=== PATIENT | female | born 1975 | race Caucasian/White ===

== ENCOUNTER 2017-08-29 09:30 | Emergency (ER) | payer MEDICAID ==
[~2017-08-29] VITALS: Ht 167.6 cm; Wt 95.4 kg
[~2017-08-29 09:30] MED LIST: AMOXICOT500 M1 PO; BACTRIM DS 8001 TA1 PO; ELIMITE 5%60 GM/TUB1 TP; FLEXERIL10 M1 PO; NOMEDS XX; PERCOCET 325 MG1 TA4 PO; TRAMADOL50 M1 PO; VISTARIL25 MG PO
--- OUTSIDE RECORDS SUMMARY | 2017-08-29 09:34 | External Medical Summary Rpt | CCD ---
Author Author , VIKAS Organization VIKAS Address Unknown Phone [email or web address] Purpose Continuity of Care Document - 03-10-2012 through 2016 Problems Code Diagnosis DOS Provider Status R73.03 Prediabetes 06-29-2016 E55.9 Vitamin D 04-13-2014 deficiency, unspecified E78.2 Mixed 04-13-2014 hyperlipide lawrence Z72.0 Tobacco use 04-13-2014 B02.9 Zoster without complicatio ns E66.9 Obesity, unspecified E86.0 Dehydration F32.1 Major depressive disorder, single episode, moderate F33.1 Major depressive disorder, recurrent, moderate G62.9 Polyneuropa thy, unspecified K92.2 Gastrointes tinal hemorrhage, unspecified L03.115 Cellulitis of right lower limb L81.8 Other specified disorders of pigmentatio n R11.10 Vomiting, unspecified R19.7 Diarrhea, unspecified R79.89 Other specified abnormal findings of blood chemistry S61.412A Laceration without foreign body of left hand, initial encounter T23.022A Burn of unspecified degree of single left finger (nail) except thumb, initial encounter Z00.00 Encounter for general adult medical examination without abnormal findings Z12.31 Encounter for screening mammogram for malignant neoplasm of breast
--- OUTSIDE RECORDS SUMMARY | 2017-08-29 09:34 | External Medical Summary Rpt | CCD ---
Author Author , VIKAS Organization VIKAS Address Unknown Phone [email or web address] Purpose Continuity of Care Document - 03-10-2012 [...]
--- OUTSIDE RECORDS SUMMARY | 2017-08-29 09:36 | External Medical Summary Rpt | CCD ---
Demographics Preferred Language New Zealander Marital Status Unknown Restorationism Affiliation Unknown Race Unknown Ethnic Group Unknown Author Author , VIKAS BEAN Address Unknown Phone Immunization Unable to retrieve immunization data due to connection failure with Immunization Registry. Please try again later.
--- OUTSIDE RECORDS SUMMARY | 2017-08-29 09:36 | External Medical Summary Rpt | CCD ---
Author Author , VIKAS Scott VIKAS Address Unknown Phone [email or web address] Care Team Providers Care Rehabilitation Technician Name Role Phone [facility]available [facility], [facility], Unavailable Unavailable [facility] Unavailable Unavailable PHYSICIANS, [facility] # [id number], Unavailable Unavailable [facility] # [id number] SHALOM COVARRUBIAS, Unavailable Unavailable [facility] COVARRUBIAS, FAISAL SHANKAR Unavailable Unavailable [facility] Unavailable [facility], [facility] Unavailable Unavailable HOSPITAL P, [facility], Unavailable [facility]available [facility] Unavailable Unavailable [facility], [facility] BEREN[facility] LUNA [facility], Unavailable Unavailable [facility] Unavailable Unavailable [facility], [facility]available [facility], [facility] ALESSIA CHUCHO, ALESSIA CHUCHO Unavailable Unavailable [facility], [facility] Unavailable Unavailable [facility], Unavailable [facility] Unavailable Unavailable CLAIMS ADMINISTRATOR , [facility] CLAIMS ADMINISTRATOR [facility] Unavailable Unavailable PHYSICIANS, [facility], Unavailable Unavailable [facility]available Unavailable [facility], [facility] Unavailable Unavailable INC., [facility] Unavailable Unavailable , [facility] Unavailable Unavailable [address], [facility] [place] [id number], Unavailable Unavailable [facility] [id number] [facility] Unavailable Unavailable OF [place], [facility] [place] Purpose Continuity of Care Document - 12-07-2008 through 2016 Problems Code Diagnosis DOS Provider Status [id number] CELLULITIS 07-02-2017 [facility] OF RIGHT EMERGENCY LOWER LIMB PHYSICIANS [id number] LACERATION 06-04-2017 [facility] W/O FOREIGN EMERGENCY BODY LT PHYSICIANS HAND INITIAL ENC [id number] BURN 2ND 05-04-2017 [facility] DEG SINGLE EMERGENCY LT FINGER PHYSICIANS NO THUMB INIT ENC [id number] BURN 2ND 05-04-2017 ST. [facility] MX LT [facility] FINGER NOT POLINA THUMB INIT ENC E559 VITAMIN D 12-15-2016 DEFICIENCY [facility] UNSPECIFIED HEALTHCARE EDGE E782 MIXED 12-15-2016 HYPERLIPIDE [facility] EDGE R7989 OTHER SPEC 12-15-2016 ABNORMAL [facility] FINDINGS HEALTHCARE BLOOD EDGE CHEMISTRY Z0000 ENCOUNTER 12-15-2016 GEN ADULT [facility] MED EXAM HEALTHCARE W/O EDGE ABNORMAL FIND Z720 TOBACCO USE 12-15-2016 [facility] EDGE R7303 PREDIABETES 10-16-2016 [facility] PHYSICIANS Z1151 ENCOUNTER 10-16-2016 FOR [facility] SCREENING PHYSICIANS FOR HUMAN PAPILLOMAVI HAAKN Z1231 ENCOUNTER 10-16-2016 SCREENING [facility] MAMMO MALIG PHYSICIANS NEOPLASM BREAST B029 ZOSTER 06-23-2016 WITHOUT [facility] COMPLICATIO PHYSICIANS NS Z6832 BODY MASS 06-23-2016 INDEX BMI [facility] 32.0-32.9 PHYSICIANS ADULT E860 DEHYDRATION 05-18-2016 [facility] EMERGENCY PHYSICIANS R1110 VOMITING 05-18-2016 [facility] UNSPECIFIED EMERGENCY PHYSICIANS R197 DIARRHEA 05-18-2016 [facility] UNSPECIFIED EMERGENCY PHYSICIANS R1030 LOWER 05-09-2016 [place] [facility]AL [facility] PA[facility]AGING ASS UNSPECIFIED B954 OTHER 05-08-2016 [facility] US CAUSE OF INC DZ CLASSIFIED ELSW N602VIH INFECTION 05-08-2016 [facility], PROCEDURE PLLC INITIAL ENCOUNTER B961 KLEBSIELLA 04-27-2016 [facility] CAUSE DZ INC CLASSIFIED ELSW N390 URINARY 04-27-2016 [facility] INFECTION INC SITE NOT SPECIFIED N393 STRESS 04-27-2016 [facility] INCONTINENC PHYSICIANS E FEMALE GROUP MALE N800 ENDOMETRIOS 04-27-2016 [facility] IS OF LLC UTERUS N831 CORPUS 04-27-2016 [facility], LUTEUM CYST LLC N8320 UNSPECIFIED 04-27-2016 [facility] OVARIAN PHYSICIANS CYSTS GROUP N938 OTHER SPEC 04-27-2016 [facility] ABNORMAL PHYSICIANS UTERINE & GROUP VAGINAL BLEEDING Q504 EMBRYONIC 04-27-2016 [facility] CYST OF LLC FALLOPIAN TUBE R102 PELVIC AND 04-27-2016 [facility] PERINEAL PHYSICIANS PAIN GROUP N761 SUBACUTE 04-06-2016 [facility] AND CHRONIC PHYSICIANS VAGINITIS GROUP N920 EXCESS & 04-06-2016 [facility] MENSTRUATIO INC N W/REGULAR CYCLE S32662 ENCOUNTER 04-06-2016 [facility] PREPROCEDUR INC AL LABORATORY EXAM N736 FEMALE 03-23-2016 [facility] PELVIC PHYSICIANS PERITONEAL GROUP ADHESIONS POSTINFECTI VE N852 HYPERTROPHY 03-23-2016 [facility] OF UTERUS PHYSICIANS GROUP N819 FEMALE 03-19-2016 [facility] GENITAL PHYSICIANS PROLAPSE GROUP UNSPECIFIED N830 FOLLICULAR 03-19-2016 [place] CYST OF MEDICAL OVARY IMAGING ASS N888 OTH SPEC 03-19-2016 [place] NONINFLAMMA MEDICAL TORY IMAGING ASS DISORDERS CERVIX UTERI Z13672 ENCOUNTER 03-19-2016 [facility] MANUFACTURING TECH EXAM PHYSICIANS GENERAL RTN GROUP W/ABNORMAL FIND Y99449 ENCOUNTER 03-19-2016 [facility] MANUFACTURING TECH EXAM [facility] GENERAL RTN LABORATORIE W/O S ABNORMAL FIND M545 LOW BACK 01-21-2016 PAIN [facility] PH[facility]ICIANS X44029 OTHER ACUTE 08-27-2015 [facility] NONSUPPURAT PHYSICIANS BALWINDER OTITIS MEDIA RT EAR J0190 ACUTE 08-27-2015 SINUSITIS [facility] UNSPECIFIED PHYSICIANS H5203 HYPERMETROP 08-14-2015 FAISAL JAM IA BILATERAL 7821 RASH AND 02-25-2015 OTHER [facility] NONSPECIFIC PHYSICIANS SKIN ERUPTION 462 ACUTE 12-27-2014 [facility]US PHARYNGITIS [facility] P 35258 CHEST PAIN 09-26-2014 [facility] P 50502 OTHER 09-26-2014 [place] NONSPECIFIC MEDICAL ABNORMAL IMAGING ASS FINDING OF LUNG FIELD 57211 NONSPECIFIC 09-26-2014 [facility] P IOGRAM 9135 ELB 06-18-[address] [facility] [address] INSECT MED CTR BITE NONVENOMOUS INF 7964 OTHER 05-18-2014 ST ABNORMAL [facility] CLINICAL [facility] CTR CLAIMS ADMINISTRATOR FINDING ST 7242 LUMBAGO 02-11-2014 ALESSIA CHUCHO 7243 SCIATICA 02-11-2014 ALESSIA CHUCHO 6146 PELVIC 10-02-2011 [facility] ADHESIONS, INC FEMALE V252 STERILIZATI 10-02-2011 [facility] ON ANESTH OF THE BLUE V259 UNSPECIFIED 10-02-2011 [facility] CONTRACEPTI INC VE MANAGEMENT V7283 OTHER 09-24-2011 [facility] SPECIFIED [facility] PRE-OPERATI INC VE EXAMINATION V2509 OTH GENERAL 08-27-2011 [facility] CONTR[facility]PT [place] MANAGEMENT V2540 UNSPECIFIED 08-27-2011 [facility] OF VE [place] SURVEILLANC E 650 NORMAL 08-07-2011 [facility] DELIVERY 39717 ESOPHAGEAL 08-06-2011 [place] [address] TOBACCO USE 08-06-2011 ST D/O COMP [facility] PG MEDICALCENT CHILDBIRTH/ ER PP DELIVERED 61488 ABN FETL 08-06-2011 ST HRT [facility] RATE/RHYTHM MEDICALCENT DELIV W/WO ER ANTPRTM COND V270 OUTCOME OF 08-06-2011 ST DEL[place] [facility] [address] THREATENED 08-02-2011 [facility] ANTEPARTUM 14734 OTHER 08-01-2011 ST THREATENED [facility] LABOR, MEDICALCENT ANTEPARTUM ER V289 UNSPECIFIED 08-01-2011 [place] [address] POST TERM 07-23-2011 [facility] ANTEPARTUM MED CTR COND/COMPLI CATION 65534 BN&JNT D/O 07-23-2011 ST MAT BACK [facility] PELVIS&LW MED CTR LIMBS ANTEPARTUM 66174 OT CURRENT 07-23-2011 ST MAT CONDS [facility] CLASSIFIABL MEDICALCENT E ELSW ER ANTPRTM 7245 UNSPECIFIED 07-23-2011 ST BACKACHE [facility] MED CTR V221 SUPERVISION 07-23-2011 ST OF OTHER [facility] NORMAL MED CTR V2889 OTHER 07-23-2011 ST SPECIFIED [facility] MEDICALCENT SCREENING ER V8901 SPCT PROB 07-23-2011 ST W/AMNIOTIC [facility] CAVITY & MEDICALCENT MEMBRANE ER NOT FOUND 87627 TOB USE D/O 03-17-2011 [facility] COMP PG MATERNAL /PP ME ANTEPARTM COND/COMP 67055 PREV C/S 03-17-2011 [facility] DELIV MATERNAL UNSPEC ME EPIS CARE/NOT APPLIC 61032 PREVIOUS 03-17-2011 ST C-SECT [facility] DELIVERY MEDICALCENT ANTPRTM ER COND/COMP 75819 UNS 03-17-2011 [facility] ABNORM MGMT MATERNAL MOTH ME ANTPRTM COND/COMP V239 UNSPECIFIED 03-17-2011 [facility] HIGH-RISK MATERNAL ME 6202 OTHER AND 12-06-2010 ST U[place]PECIF[place] [address] ABDOMINAL 12-06-2010 ST PAIN, [facility] [address] ABDOMINAL 12-06-2010 ST TENDERNESS [facility] [address] ABDOMINAL 12-06-2010 ST TENDERNESS [facility] LEFT LOWER MEDICALCENT QUADRANT ER 7999 OTHER 12-06-2010 [facility] UNKNOWN&UNS AMBULANCE PEC CAUSE MORBIDITY/M ORTALITY V242 ROUTINE 04-08-2009 [place] [address] PREV C/S 04-06-2009 ST DELIV DELIV [facility] W/WO MEDICALCENT MENTION ER ANTPRTM COND V2389 SUPERVISION 03-21-2009 [facility] OTHER [facility] 10672 ASYMPTOMATI 01-29-2009 ST C [facility] BACTERIURIA MEDICALCENT PG UNSPEC ER EPIS CARE 05924 CNTRL NERV 12-07-2008 [facility] SYS MATERNAL MALFORMATIO N IN FETUS MEDICINE ANTEPARTUM INC 7965 ABNORMAL 12-07-2008 ST FINDING ON [facility] SCREENING ER Medications Na ND Rx Da Fi Fi Am Da Di Ph RX Ph St me C No te ll ll ou ys ag ar # ys at rm s nt no ma ic us Or Da si cy ia de te s n re d HY 00 10 11 [address] 40 -0 -1 .0 00 TA ti OC 60 7- 0- 00 00 L ve OD 12 20 20 96 CA ON 30 17 17 45 RE -A 5 86 CE PH TA AR [address] MA NO CY PH EN #5 5- 32 5 CE 00 10 11 40 10 00 TO Ac PH 09 -0 -1 .0 00 TA ti AL 33 7- 0- 00 00 L ve EX 14 20 20 96 CA IN 70 17 17 45 RE 5 87 50 PH 0 AR MG MA CY CA PS #5 UL E GA 16 10 11 90 30 00 TO Ac BA 71 -0 -0 .0 00 TA ti PE 40 4- 3- 00 00 L ve NT 50 20 20 94 CA IN 40 17 17 94 RE 2 70 30 PH 0 AR MG MA CY CA PS #5 UL E CH 00 10 11 56 28 00 TO Ac AN 06 -0 -0 .0 00 TA ti TI 90 4- 3- 00 00 L ve X 46 20 20 93 CA 1 90 17 17 90 RE MG 3 79 PH CO AR NT MA CY MO NT #5 H YARELY X CH 00 09 10 56 28 00 TO Ac AN 06 -0 -1 .0 00 TA ti TI 90 9- 3- 00 00 L ve X 46 20 20 93 CA 1 90 17 17 90 RE MG 3 79 PH CO AR NT MA CY MO NT #5 H YARELY X GA 16 09 10 90 30 00 TO Ac BA 71 -0 -0 .0 00 TA ti PE 40 1- 6- 00 00 L ve NT 50 20 20 94 CA IN 40 17 17 94 RE 2 70 30 PH 0 AR MG MA CY CA PS #5 UL E GA 16 08 09 90 30 00 TO Ac BA 71 -0 -0 .0 00 TA ti PE 40 3- 8- 00 00 L ve NT 50 20 20 94 CA IN 40 17 17 94 RE 2 70 30 PH 0 AR MG MA CY CA PS #5 UL E OX 00 08 09 15 3 00 TO Ac YC 40 -0 -0 .0 00 TA ti OD 60 9- 8- 00 00 L ve ON 51 20 20 95 CA E- 20 17 17 84 RE AC 5 24 ET PH AM AR IN MA OP CY HE N #5 5- 32 5 GA 16 07 08 90 30 00 TO Ac BA 71 -0 -0 .0 00 TA ti PE 40 5- 4- 00 00 L ve NT 50 20 20 94 CA IN 40 17 17 93 RE 2 38 30 PH 0 AR MG MA CY CA PS #5 UL E GA 16 06 07 90 30 00 TO Ac BA 71 -0 -0 .0 00 TA ti PE 40 2- 7- 00 00 L ve NT 50 20 20 94 CA IN 40 17 17 93 RE 2 38 30 PH 0 AR MG MA CY CA PS #5 UL E GA 16 05 06 90 30 00 TO BA 71 -0 -0 .0 00 TA ti PE 40 2- 2- 00 00 L ve NT 50 20 20 94 CA IN 40 17 17 93 RE 2 38 30 PH 0 AR MG MA CY CA PS #5 UL E 69 04 05 4. 28 00 TO T 45 -2 -2 00 00 TA ti D2 20 5- 6- 0 00 L ve 15 20 20 94 CA 1. 12 17 17 86 RE 25 0 54 PH MG AR MA (5 CY 0, 00 #5 0 UN IT ) SI 16 04 05 30 30 00 TO MV 71 -2 -2 .0 00 TA ti 40 5- 6- 00 00 L ve TA 68 20 20 94 CA TI 30 17 17 86 RE N 3 55 20 PH AR MG MA CY TA BL #5 ET GA 16 04 05 90 30 00 TO BA 71 -0 -0 .0 00 TA ti PE 40 3- 5- 00 00 L ve NT 50 20 20 94 CA IN 40 17 17 05 RE 2 47 30 PH 0 AR MG MA CY CA PS #5 UL E GA 16 03 04 90 30 00 TO BA 71 -0 -0 .0 00 TA ti PE 40 4- 7- 00 00 L ve NT 50 20 20 94 CA IN 40 17 17 05 RE 2 47 30 PH 0 AR MG MA CY CA PS #5 UL E GA 16 02 03 90 30 00 TO BA 71 -0 -1 .0 00 TA ti PE 40 3- 0- 00 00 L ve NT 50 20 20 94 CA IN 40 17 17 05 RE 2 47 30 PH 0 AR MG MA CY CA PS #5 UL E CH 00 01 03 53 28 00 TO AN 06 -2 -0 .0 00 TA ti TI 90 6- 3- 00 00 L ve X 47 [address] 10 17 17 90 RE AR 3 76 TI PH NG AR MA MO CY NT H #5 YARELY X GA 16 01 02 90 30 00 TO BA 71 -0 -0 .0 00 TA ti PE 40 3- 3- 00 00 L ve NT 50 20 20 92 CA IN 40 17 17 78 RE 2 57 30 PH 0 AR MG MA CY CA PS #5 UL E NM 60 04 04 5 30 30 CV 56 GARDNER Ac EN 25 -2 -2 .0 S 92 LL ti AT 80 5- 5- 00 PH 64 ve AL 19 20 20 AR ED 40 11 11 MA WA AD [address] CY RD # C TA BL 05 ET 43 7 00 08 09 00 30 2 WA 44 CL Ac 40 -2 -1 .0 L- 79 AR ti 60 8- 0- 00 MA 23 KE ve 35 20 20 RT 6 70 09 09 DE 5 PH RE AR K MA J CY #5 91 IB 68 08 09 00 40 6 WA 70 CL Ac UP 64 -2 -1 .0 L- 34 AR ti RO 50 8- 0- 00 MA 27 KE ve FE 22 20 20 RT 4 N 09 09 09 DE 40 0 PH RE 0 AR K MG MA J CY TA BL #5 ET 91 ME 59 08 08 00 1. 90 CL [address] 76 -1 -2 00 IN 89 AR ti OX 24 7- 7- 0 IC 66 KE ve YP 53 20 20 RO 70 09 09 PH DE GE [address] MA K ER CY J ON E 15 0 MG /M L RA 00 06 07 00 60 30 WA 72 DO Ac NI 17 -1 -0 .0 L- 98 OL ti TI 24 8- 2- 00 MA 19 EY ve DI 35 20 20 RT 2 NE 74 09 09 MA 9 PH RI 15 AR HE 0 MA LE MG CY N TA #1 BL 0- ET 19 61 NI 00 05 06 00 14 7 WA 68 MY Ac TR 18 -1 -0 .0 LG 76 ER ti OF 50 9- 4- 00 RE 01 S ve UR 12 20 20 EN BE AN 20 09 09 S TH TO 1 05 A IN 54 8 MO NO -M CR 10 0 MG Procedures Procedure DOS Code Location Performer Comment RESECTION [id number] [facility] OF LEFT 6 [facility] OVARY INC INC OPEN REPAIR [id number] [facility] PELVIC 6 [facility] REGION INC INC SUBQ TISSUE & FASCIA OPEN RESECTION [id number] [facility] CERVIX 6 [facility] OPEN INC INC RESECTION [id number] [facility] BILATERAL INC INC FALLOPIAN TUBES OPEN RESECTION [id number] [facility] UTERUS 6 [facility] OPEN INC INC LOW [address] FORCEPS 1 [facility] OPERATION WITH MEDICALCE MEDICALCE EPISIOTOM NTER NTER Y OTHER [address] ST MANUALLY 1 [facility] ASSISTED DELIVERY MEDICALCE MEDICALCE NTER NTER OTH BILAT 6629 [facility] ENDO 9 [facility] DESTRUC/O INC INC CCLUSION FALLOP TUBES EPISIOTOM [address] Y 9 [facility] MEDICALCE MEDICALCE NTER NTER OTHER [address] MANUALLY 9 S[facility]RA [facility] ASSISTED DELIVERY MEDICALCE MEDICALCE NTER NTER DIAGNOSTI 751 ST C 9 [facility] AMNIOCENT ESIS MEDICALCE MEDICALCE NTER NTER Encounters Encounter Start End Date Code Location Performer Type Date [facility] [address] [facility] [address] [facility] - 6 6 [facility] - 6 6 [facility] - 4 4 [facility] - 2 2 [facility] - 1 [address] [facility] - 1 [facility] 1 1 [facility] 1 1 [facility] [place] [id number] 9 [facility] 9 [facility] 9 [facility]
--- OUTSIDE RECORDS SUMMARY | 2017-08-29 09:36 | External Medical Summary Rpt | CCD ---
Author Author , VIKAS Scott VIKAS Address Unknown Phone [email or web address] Care Team Providers Care Websphere Process Server Developer Name Role Phone [facility] Unavailable Unavailable [facility]ORATORIES, [facility], Unavailable Unavailable [facility]available Unavailable [facility] [place] [place] [facility] Unavailable Unavailable PHYSICIANS, [facility] # [id number], Unavailable Unavailable [facility] # [id number] SHALOM COVARRUBIAS, Unavailable Unavailable SHAL[facility] COVARRUBIAS, FAISAL SHANKAR Unavailable Unavailable [facility] Unavailable Unavailable INC, [facility] Unavailable [facility]available HOSPITAL P, [facility]available Unavailable [facility] Unavailable Unavailable IMAGING [facility], [facility] BEREN[facility]NA [facility], Unavailable Unavailable [facility]EREN[facility] LUNA [facility] Unavailable Unavailable [facility], [facility], Unavailable [facility]available [facility], [facility] ALESSIA CHUCHO, ALESSIA CHUCHO Unavailable Unavailable [facility], [facility] Unavailable Unavailable [facility], [facility]available Unavailable [facility] Unavailable Unavailable STREAM CONTROL OFFICER , [facility]REAM CONTROL [facility] Unavailable Unavailable PHYSICIANS, [facility], Unavailable Unavailable [facility]available Unavailable [facility], [facility] Unavailable Unavailable INC., [facility] Unavailable Unavailable , [facility] # [facility] Unavailable Unavailable [address], [facility] [place] [id number], [facility]available Unavailable [facility] [id number] [facility] Unavailable Unavailable OF [place], [facility] Purpose Continuity of Care Document - 12-07-2008 through 2016 Problems Code Diagnosis DOS Provider Status [id number] CELLULITIS 07-02-2017 [facility] OF RIGHT EMERGENCY LOWER LIMB PHYSICIANS [id number] LACERATION 06-04-2017 [facility] W/O FOREIGN EMERGENCY BODY LT PHYSICIANS HAND INITIAL ENC [id number] BURN 2ND 05-04-2017 [facility] DEG SINGLE EMERGENCY LT FINGER PHYSICIANS NO THUMB INIT ENC [id number] BURN 2ND 05-04-2017 ST. [facility] MX LT [facility] FINGER NOT POLINA THUMB INIT ENC E559 VITAMIN D 12-15-2016 DEFICIENCY [facility] UNSPECIFIED HEALTHCARE EDGE E782 MIXED 12-15-2016 HYPERLIPIDE [facility] EDGE R7989 OTHER SPEC 12-15-2016 ABNORMAL [facility] FINDINGS HEALTHCARE BLOOD EDGE CHEMISTRY Z0000 ENCOUNTER 12-15-2016 GEN ADULT [facility] MED EXAM HEALTHCARE W/O EDGE ABNORMAL FIND Z720 TOBACCO USE 12-15-2016 [facility] EDGE R7303 PREDIABETES 10-16-2016 [facility] PHYSICIANS Z1151 ENCOUNTER 10-16-2016 FOR [facility] SCREENING PHYSICIANS FOR HUMAN PAPILLOMAVI HAKAN Z1231 ENCOUNTER 10-16-2016 SCREENING [facility] MAMMO MALIG PHYSICIANS NEOPLASM BREAST B029 ZOSTER 06-23-2016 WITHOUT [facility] COMPLICATIO PHYSICIANS NS Z6832 BODY MASS 06-23-2016 INDEX BMI [facility] 32.0-32.9 PHYSICIANS ADULT E860 DEHYDRATION 05-18-2016 [facility]GENC[facility] PHYSICIANS R1110 VOMITING 05-18-2016 [facility] UNSPECIFIED EMERGENCY PHYSICIANS R197 DIARRHEA 05-18-2016 [facility] UNSPECIFIED EMERGENCY PHYSICIANS R1030 LOWER 05-09-2016 [facility] ABDOMINAL [facility]ICAL PAIN IMAGING ASS UNSPECIFIED B954 OTHER 05-08-2016 [facility] US CAUSE OF INC DZ CLASSIFIED ELSW D670HXB INFECTION 05-08-2016 [facility]ANS, PROCEDURE PLLC INITIAL ENCOUNTER B961 KLEBSIELLA 04-27-2016 [facility] CAUSE DZ INC CLASSIFIED ELSW N390 URINARY 04-27-2016 [facility] INFECTION INC SITE NOT SPECIFIED N393 STRESS 04-27-2016 [facility] INCONTINENC PHYSICIANS E FEMALE GROUP MALE N800 ENDOMETRIOS 04-27-2016 [facility] IS OF LLC UTERUS N831 CORPUS 04-27-2016 [facility], LUTEUM CYST LLC N8320 UNSPECIFIED 04-27-2016 [facility] OVARIAN PHYSICIANS CYSTS GROUP N938 OTHER SPEC 04-27-2016 [facility] ABNORMAL PHYSICIANS UTERINE & GROUP VAGINAL BLEEDING Q504 EMBRYONIC 04-27-2016 [facility], CYST OF LLC FALLOPIAN TUBE R102 PELVIC AND 04-27-2016 [facility] PERINEAL PHYSICIANS PAIN GROUP N761 SUBACUTE 04-06-2016 [facility] AND CHRONIC PHYSICIANS VAGINITIS GROUP N920 EXCESS & 04-06-2016 [facility] MENSTRUATIO INC N W/REGULAR CYCLE W40118 ENCOUNTER 04-06-2016 [facility] PREPROCEDUR INC AL LABORATORY EXAM N736 FEMALE 03-23-2016 [facility] PELVIC PHYSICIANS PERITONEAL GROUP ADHESIONS POSTINFECTI VE N852 HYPERTROPHY 03-23-2016 [facility] OF UTERUS PHYSICIANS GROUP N819 FEMALE 03-19-2016 [facility] GENITAL PHYSICIANS PROLAPSE GROUP UNSPECIFIED N830 FOLLICULAR 03-19-2016 [place] CYST OF MEDICAL OVARY IMAGING ASS N888 OTH SPEC 03-19-2016 [place] NONINFLAMMA MEDICAL TORY IMAGING ASS DISORDERS CERVIX UTERI U10600 ENCOUNTER 03-19-2016 [facility] OPEN HEARTH WORKER EXAM PHYSICIANS GENERAL RTN GROUP W/ABNORMAL FIND L39210 ENCOUNTER 03-19-2016 [facility] OPEN HEARTH WORKER EXAM [facility] GENERAL RTN LABORATORIE W/O S ABNORMAL FIND M545 LOW BACK 01-21-2016 PAIN [facility] PHYSICIANS B50046 OTHER ACUTE 08-27-2015 [facility] NONSUPPURAT PHYSICIANS BALWINDER OTITIS MEDIA RT EAR J0190 ACUTE 08-27-2015 SINUSITIS [facility] UNSPECIFIED PHYSICIANS H5203 HYPERMETROP 08-14-2015 FAISAL JAM IA BILATERAL 7821 RASH AND 02-25-2015 OTHER [facility] NONSPECIFIC PHYSICIANS SKIN ERUPTION 462 ACUTE 12-27-2014 [facility] 99094 CHEST PAIN 09-26-2014 [facility] P 33009 OTHER 09-26-2014 [place] NONSPECIFIC MEDICAL ABNORMAL IMAGING ASS FINDING OF LUNG FIELD 23629 NONSPECIFIC 09-26-2014 [facility] P IOGRAM 9135 ELB 06-18-[address] FOREARM&[address] [facility] [address] [facility] CTR BITE NONVENOMOUS INF 7964 OTHER 05-18-2014 ST ABNORMAL [facility] CLINICAL MED CTR STREAM CONTROL OFFICER FINDING ST 7242 LUMBAGO 02-11-2014 ALESSIA CHUCHO [...] E 650 NORMAL 08-07-2011 [facility] DELIVERY 40959 ESOPHAGEAL 08-06-2011 [place] [address] TOBACCO USE 08-06-2011 ST D/O COMP [facility] PG MEDICALCENT CHILDBIRTH/ ER PP DELIVERED 58384 ABN FETL 08-06-2011 ST HRT [facility] RATE/RHYTHM MEDICALCENT DELIV W/WO ER ANTPRTM COND V270 OUTCOME OF 08-06-2011 ST DELIV[place] [facility] [address] THREATENED 08-02-2011 [facility] INC. ANTEPARTUM 36299 OTHER 08-01-2011 ST THREATENED [facility] LABOR, MEDICALCENT ANTEPARTUM ER V289 UNSPECIFIED 08-01-2011 [place] [address] POST TERM 07-23-2011 [facility] ANTEPARTUM MED CTR COND/COMPLI CATION 78185 BN&JNT D/O 07-23-2011 ST MAT BACK [facility] PELVIS&LW MED CTR LIMBS ANTEPARTUM 03885 OT CURRENT 07-23-2011 ST MAT CONDS [facility] CLASSIFIABL MEDICALCENT E ELSW ER ANTPRTM 7245 UNSPECIFIED 07-23-2011 ST BACKACHE [facility] MED CTR V221 SUPERVISION 07-23-2011 ST OF OTHER [facility] NORMAL MED CTR V2889 OTHER 07-23-2011 ST SPECIFIED [facility] MEDICALCENT SCREENING ER V8901 SPCT PROB 07-23-2011 ST W/AMNIOTIC [facility] CAVITY & MEDICALCENT MEMBRANE ER NOT FOUND 30043 TOB USE D/O 03-17-2011 [facility] COMP PG MATERNAL /PP ME ANTEPARTM COND/COMP 56583 PREV C/S 03-17-2011 [facility] DELIV MATERNAL UNSPEC ME EPIS CARE/NOT APPLIC 81538 PREVIOUS 03-17-2011 ST C-SECT [facility] DELIVERY MEDICALCENT ANTPRTM ER COND/COMP 14099 UNS 03-17-2011 [facility] ABNORM MGMT MATERNAL MOTH ME ANTPRTM COND/COMP V239 UNSPECIFIED 03-17-2011 [facility] HIGH-RISK MATERNAL ME 6202 OTHER AND 12-06-2010 ST UNSPECIFIED [place] [address] ABDOMINAL 12-06-2010 ST PAIN, [facility] [address] ABDOMINAL 12-06-2010 ST TENDERNESS [facility] [place] [address] ABDOMINAL 12-06-2010 ST TENDERNESS [facility] LEFT LOWER MEDICALCENT QUADRANT ER 7999 OTHER 12-06-2010 [facility] UNKNOWN&UNS AMBULANCE PEC CAUSE MORBIDITY/M ORTALITY V242 ROUTINE 04-08-2009 [place] [address] PREV C/S 04-06-2009 ST DELIV DELIV [facility] W/WO MEDICALCENT MENTION ER ANTPRTM COND V2389 SUPERVISION 03-21-2009 [facility] 15827 ASYMPTOMATI 01-29-2009 ST C [facility] BACTERIURIA MEDICALCENT PG UNSPEC ER EPIS CARE 70797 CNTRL NERV 12-07-2008 [facility] SYS MATERNAL MALFORMATIO [...] -A 5 86 CE PH TA AR PA MA NO CY PH EN #5 5- [...] MA CY CA PS #5 UL E WA 60 04 04 5 30 30 CV [...] Procedure DOS Code Location Performer Comment RESECTION [id number] [facility] OF LEFT 6 [facility] OVARY INC INC OPEN REPAIR [id number] [facility] PELVIC 6 [facility] REGION INC INC SUBQ TISSUE & FASCIA OPEN RESECTION [id number] [facility] CERVIX 6 [facility] OPEN INC INC RESECTION [id number] [facility] 6 [facility] BILATERAL INC INC FALLOPIAN TUBES OPEN RESECTION [id number] [facility] UTERUS 6 MEM HOS[facility] MEM [...] Date Code Location Performer Type Date [facility]OSPITAL [facility] - 7 7 [facility] [address] [facility] - 6 6 [facility] - [facility] [address] [facility] - 6 6 [facility] - 4 4 [facility] - 2 2 [facility] - 1 [address] [facility] - 1 [facility] 1 1 [facility] - 1 [facility] - 1 1 [facility] - 1 1 [facility] [place] [id number] 9 [facility] 9 [facility] 9 [facility]
--- OUTSIDE RECORDS SUMMARY | 2017-08-29 09:36 | External Medical Summary Rpt | CCD ---
Demographics Preferred Language Burmese Marital Status Unknown Hinduism Affiliation Unknown Race Unknown Ethnic Group Unknown Author Author , VIKAS BEAN Address Unknown Phone Immunization Unable to retrieve immunization data due to connection failure with Immunization Registry. Please try again later.
--- OUTSIDE RECORDS SUMMARY | 2017-08-29 09:37 | External Medical Summary Rpt ---
Author Author GAELKEKE Terry, [employer] Address Unknown Phone Unavailable Results Vit D 25-OH Observa Value Referen Units Interpr Notes Date tion ce etation Range Vitamin 13.3 30.0 - ng/mL Low INTERPR Dec 15 D-25 120.0 ETIVE 2017 [place] INFORMA 7:07 PM TION: Vitamin D, 25-Hydr oxy\.br \\.br\< 20 ng/mL Deficie ncy\.br \20 - 29 ng/mL Insuffi ciency\ .br\30 - 80 ng/mL Optimum Level\. br\>120 ng/mL Possibl e Toxicit y\.br\\ .br\NOT E: For infants and childre n up to 17 years of age, the optimum level is >=20 ng/mL. This assay accurat uyen quantif ies the sum of vitamin D3, 25-Hydr oxy and vitamin D2, 25-Hydr oxy. Lipid Scr Observa Value Referen Units Interpr Notes Date tion ce etation Range Cholest 193 <=200 mg/dL No < 200 Dec 15 esa informa 2017 [Percen tion in 5:29 PM tile] source Desirab data le\.br\ 200 - 239 Borderl ine High\.b r\>= 240 High TRIGLYC 67 <=150 mg/dL No < 150 Dec 15 ERIDES. informa 2017 TOTAL tion in Normal\ 5:29 PM source .br\150 data - 199 Borderl ine High\.b r\200 - 499 High\.b r\ >= 500 Very High CHOLEST 65 >=40 mg/dL No > 60 Dec 15 EROLS.I informa 2016 N HDL tion in Optimal 5:29 PM source \.br\40 data - 60 Accepta ble\.br \ < 40 Low LDL 115 <=100 mg/dL High < 100 Dec 15 Calcula 2017 ariella 5:29 PM Optimal \.br\10 0 - 129 Near or above optimal \.br\13 0 - 159 Borderl ine High\.b r\160 - 189 High\.b r\ >= 190 Very High TSH Observa Value Referen Units Interpr Notes Date tion ce etation Range Thyrotr 3.020 0.270 - mcIU/mL No No Nov 21 opin 4.200 informa informa 2017 [Units/ tion in tion in 5:29 PM volume] source source in data data Serum or Plasma Auto Diff Observa Value Referen Units Interpr Notes Date tion ce etation Range Neutrop 62.2 No % No No Dec 15 hils informa informa informa 2017 [#/volu tion in tion in tion in 5:07 PM me] in source source source Blood data data data by Automat ed count Lymphoc 26.3 No % No No Dec 15 ytes informa informa informa 2017 [#/volu tion in tion in tion in 5:07 PM me] in source source source Blood data data data by Automat ed count Monocyt 7.2 No % No No Dec 15 es informa informa informa 2016 [#/volu tion in tion in tion in 5:07 PM me] in source source source Blood data data data by Automat ed count Eos 3.9 No % No No Dec 15 Percent informa informa informa 2017 tion in tion in tion in 5:07 PM source source source data data data Baso 0.4 No % No No Dec 15 Percent informa informa informa 2017 tion in tion in tion in 5:07 PM source source source data data data Neut# 5.3 1.8 - x10(3)/ No No Dec 15 7.7 mcL informa informa 2017 tion in tion in 5:07 PM source source data data Lymph# 2.3 0.6 - x10(3)/ No No Nov 21 4.8 mcL informa informa 2017 tion in tion in 5:07 PM source source data data [place]# 0.6 0.0 - x10(3)/ No No Nov 21 1.3 mcL informa informa 2017 tion in tion in 5:07 PM source source data data Eos# 0.3 0.0 - x10(3)/ No No Dec 15 0.5 mcL informa informa 2017 tion in tion in 5:07 PM source source data data Baso# 0.0 0.0 - x10(3)/ No No Dec 15 0.2 mcL informa informa 2017 tion in tion in 5:07 PM source source data data CBC Observa Value Referen Units Interpr Notes Date tion ce etation Range LEUKOCY 8.6 4.0 - x10(3)/ No No Dec 15 PAOLA 11.0 mcL informa informa 2017 tion in tion in 5:07 PM source source data data Erythro 4.78 3.80 - x10(6)/ No No Dec 15 cytes 5.10 mcL informa informa 2016 [#/volu tion in tion in 5:07 PM me] in source source Blood data data by Automat ed count Hemoglo 13.7 12.0 - gm/dL No No Dec 15 bin 15.6 informa informa 2016 [Mass/v tion in tion in 5:07 PM olume] source source in data data Blood Hematoc 41.4 35.7 - % No No Dec 15 rit 45.9 informa informa 2016 [Volume tion in tion in 5:07 PM source source Fractio data data n] of Blood by Automat ed count Erythro 86.5 82.5 - fL No No Dec 15 cyte 99.8 informa informa 2016 mean tion in tion in 5:07 PM corpusc source source ular data data volume [Entiti c volume] by Automat ed count Erythro 28.7 27.0 - pg No No Dec 15 cyte 34.3 informa informa 2016 mean tion in tion in 5:07 PM corpusc source source ular data data hemoglo bin [Entiti c mass] by Automat ed count Erythro 33.2 32.1 - gm/dL No No Dec 15 cyte 35.3 informa informa 2017 mean tion in tion in 5:07 PM corpusc source source ular data data hemoglo bin concent ration [Mass/v olume] by Automat ed count Erythro 13.5 11.5 - % No No Dec 15 cyte 15.0 informa informa 2017 distrib tion in tion in 5:07 PM ution source source width data data [Ratio] by Automat ed count Platele 382 144 - x10(3)/ No No Dec 15 ts 423 mcL informa informa 2017 [#/volu tion in tion in 5:07 PM me] in source source Blood data data by Automat ed count MPV 9.4 6.8 - fL No No Dec 15 10.8 informa informa 2016 tion in tion in 5:07 PM source source data data UA Observa Value Referen Units Interpr Notes Date tion ce etation Range UA Light No No No No May 18 Color Yellow informa informa informa informa 2016 tion in tion in tion in tion in 9:48 AM source source source source data data data data UA Clear Clear No No No May 18 Appear informa informa informa 2016 tion in tion in tion in 9:48 AM source source source data data data UA Negativ Negativ No No No May 18 Glucose e e informa informa informa 2016 tion in tion in tion in 9:48 AM source source source data data data UA Negativ Negativ No No No May 18 Ketones e e informa informa informa 2016 tion in tion in tion in 9:48 AM source source source data data data UA Small Negativ No Abnorma No May 18 Blood e informa l informa 2016 tion in tion in 9:48 AM source source data data UA pH 7.0 4.8 - No No Referen May 18 8.0 informa informa ce 2016 tion in tion in range 9:48 AM source source valid data data for random specime ns only. UA Negativ Negativ No No No May 18 Protein e e informa informa informa 2016 tion in tion in tion in 9:48 AM source source source data data data UA Normal <=1 No No No May 18 Urobili mg/dl informa informa informa 2016 nogen tion in tion in tion in 9:48 AM source source source data data data UA Negativ Negativ No No No May 18 Nitrite e e informa informa informa 2016 tion in tion in tion in 9:48 AM source source source data data data UA Leuk Trace Negativ No Abnorma No May 18 Est e informa l informa 2016 tion in tion in 9:48 AM source source data data UA Spec 1.008 1.001 - No No Referen May 18 Grav 1.035 informa informa ce 2016 tion in tion in range 9:48 AM source source valid data data for random specime ns only. UA WBC 7 0 - 4 /HPF High No May 18 informa 2016 tion in 9:48 AM source data UA RBC 1 0 - 3 /HPF No No May 18 informa informa 2016 tion in tion in 9:48 AM source source data data UA 2+ No No No No May 18 Squam informa informa informa informa 2016 Epi tion in tion in tion in tion in 9:48 AM source source source source data data data data UA Trace No No No No May 18 Mucous informa informa informa informa 2016 tion in tion in tion in tion in 9:48 AM source source source source data data data data UA Trace No No Abnorma No May 18 Bacteri informa informa l informa 2016 a tion in tion in tion in 9:48 AM source source source data data data BMP Observa Value Referen Units Interpr Notes Date tion ce etation Range Sodium 138 136 - mmol/L No No May 18 145 informa informa 2016 tion in tion in 9:48 AM source source data data Potassi 3.3 3.5 - mmol/L Low No May 18 um 5.0 informa 2015 [Moles/ tion in 9:48 AM volume] source in data Serum or Plasma Chlorid 98 98 - mmol/L No No May 18 e 107 informa informa 2016 tion in tion in 9:48 AM source source data data Carbon 26 22 - 29 mmol/L No May 18 dioxide informa informa 2016 , total tion in tion in 9:48 AM source source [Moles/ data data volume] in Serum or Plasma Anion 14 7 - 16 mmol/L No No May 18 Gap informa informa 2016 tion in tion in 9:48 AM source source data data CALCIUM 8.6 8.6 - mg/dL No No May 18 .TOTAL 10.2 informa informa 2016 tion in tion in 9:48 AM source source data data Glucose 104 74 - mg/dL High No May 18 Lvl 100 informa 2016 tion in 9:48 AM source data BUN 9 6 - 20 mg/dL No No May 18 informa informa 2016 tion in tion in 9:48 AM source source data data Creatin 2.00 0.51 - mg/dL High No May 18 ine 1.30 informa 2016 tion in 9:48 AM source data GFR Afr 34 No No No No May 18 Am informa informa informa informa 2016 tion in tion in tion in tion in 9:48 AM source source source source data data data data GFR Non 28 No No No No May 18 Afr Am informa informa informa informa 2016 tion in tion in tion in tion in 9:48 AM source source source source data data data data Auto Diff Observa Value Referen Units Interpr Notes Date tion ce etation Range Neutrop 69.3 No % No No May 18 hils informa informa informa 2016 [#/volu tion in tion in tion in 9:33 AM me] in source source source Blood data data data by Automat ed count Lymphoc 17.3 No % No May 18 ytes informa informa informa 2016 [#/volu tion in tion in tion in 9:33 AM me] in source source source Blood data data data by Automat ed count Monocyt 7.3 No % No No May 18 es informa informa informa 2016 [#/volu tion in tion in tion in 9:33 AM me] in source source source Blood data data data by Automat ed count Eos 5.0 No % No May 18 Percent informa informa informa 2016 tion in tion in tion in 9:33 AM source source source data data data Baso 1.1 No % No May 18 Percent informa informa informa 2016 tion in tion in tion in 9:33 AM source source source data data data Neut# 7.6 1.8 - x10(3)/ No No May 18 7.7 mcL informa informa 2016 tion in tion in 9:33 AM source source data data Lymph# 1.9 0.6 - x10(3)/ No No May 18 4.8 mcL informa informa 2016 tion in tion in 9:33 AM source source data data [place]# 0.8 0.0 - x10(3)/ No May 18 1.3 mcL informa informa 2016 tion in tion in 9:33 AM source source data data Eos# 0.5 0.0 - x10(3)/ No No May 18 0.5 [facility] informa informa 2016 tion in tion in 9:33 AM source source data data Baso# 0.1 0.0 - x10(3)/ No No May 18 0.2 [facility] informa informa 2016 tion in tion in 9:33 AM source source data data CBC Observa Value Referen Units Interpr Notes Date tion ce etation Range LEUKOCY 10.9 4.0 - x10(3)/ No No May 18 PAOLA 11.0 [facility] informa informa 2016 tion in tion in 9:33 AM source source data data Erythro 4.35 3.80 - x10(6)/ No May 18 cytes 5.10 [facility] informa informa 2016 [#/volu tion in tion in 9:33 AM me] in source source Blood data data by Automat ed count Hemoglo 12.1 12.0 - gm/dL No May 18 bin 15.6 informa informa 2016 [Mass/v tion in tion in 9:33 AM olume] source source in data data Blood Hematoc 36.8 35.7 - % No May 18 rit 45.9 informa informa 2016 [Volume tion in tion in 9:33 AM source source Fractio data data n] of Blood by Automat ed count Erythro 84.5 82.5 - fL No No May 18 cyte 99.8 informa informa 2016 mean tion in tion in 9:33 AM corpusc source source ular data data volume [Entiti c volume] by Automat ed count Erythro 27.7 27.0 - pg No No May 18 cyte 34.3 informa informa 2016 mean tion in tion in 9:33 AM corpusc source source ular data data hemoglo bin [Entiti c mass] by Automat ed count Erythro 32.8 32.1 - gm/dL No No May 18 cyte 35.3 informa informa 2016 mean tion in tion in 9:33 AM corpusc source source ular data data hemoglo bin concent ration [Mass/v olume] by Automat ed count Erythro 12.7 11.5 - % No No May 18 cyte 15.0 informa informa 2016 distrib tion in tion in 9:33 AM ution source source width data data [Ratio] by Automat ed count Platele 440 144 - x10(3)/ High No May 18 ts 423 mcL informa 2016 [#/volu tion in 9:33 AM me] in source Blood data by Automat ed count MPV 9.3 6.8 - fL No No May 18 10.8 informa informa 2016 tion in tion in 9:33 AM source source data data Free T3 Observa Value Referen Units Interpr Notes Date tion ce etation Range T3 Free 2.73 2.00 - pg/mL No No May 18 4.40 informa informa 2013 tion in tion in 4:57 PM source source data data Free T4 Observa Value Referen Units Interpr Notes Date tion ce etation Range Thyroxi 0.95 0.93 - ng/dL No No May 18 ne (T4) 1.70 informa informa 2013 free tion in tion in 4:57 PM [Mass/v source source olume] data data in Serum or Plasma TSH Observa Value Referen Units Interpr Notes Date tion ce etation Range Thyrotr 3.490 0.270 - mcIU/mL No No May 18 opin 4.200 informa informa 2013 [Units/ tion in tion in 4:52 PM volume] source source in data data Serum or Plasma Free T3 Observa Value Referen Units Interpr Notes Date tion ce etation Range T3 Free 2.63 2.00 - pg/mL No No Apr 06 4.40 informa informa 2013 tion in tion in 8:06 PM source source data data Free T4 Observa Value Referen Units Interpr Notes Date tion ce etation Range Thyroxi 1.06 0.93 - ng/dL No No Apr 06 ne (T4) 1.70 informa informa 2013 free tion in tion in 8:06 PM [Mass/v source source olume] data data in Serum or Plasma Vit D 25-OH Observa Value Referen Units Interpr Notes Date tion ce etation Range Vitamin 14.5 30.0 - ng/mL Low INTERPR Apr 06 D-25 120.0 ETIVE 2014 [place] INFORMA 9:10 AM TION: Vitamin D, 25-Hydr oxy\.br \\.br\< 20 ng/mL Deficie ncy\.br \20 - 29 ng/mL Insuffi ciency\ .br\30 - 80 ng/mL Optimum Level\. br\>120 ng/mL Possibl e Toxicit y\.br\\ .br\NOT E: For infants and childre n up to 17 years of age, the optimum level is >=20 ng/mL. This assay accurat uyen quantif ies the sum of vitamin D3, 25-Hydr oxy and vitamin D2, 25-Hydr oxy. Glyco Observa Value Referen Units Interpr Notes Date tion ce etation Range Hemoglo 6.1 <=7.0 % No Initial Apr 06 bin informa 2013 A1c/Hem tion in Diagnos 8:49 AM [place] source tic .total data Criteri in a\.br\< Blood 5.7 % Normal\ .br\5.7 - 6.4 % At risk for diabete s mellitu s\.br\> = 6.5 % Consist ent with diabete s mellitu s\.br\\ .br\Aida betes monitor ing\.br \Target Value (ADA recomme nded): < 7 % Diff Observa Value Referen Units Interpr Notes ti ce etation Range Neutrop 2 0 - 10 % No No Apr 05 hils.ba informa informa 2013 nd tion in tion in 7:35 PM form/10 source source 0 data data leukocy paola in Blood by Manual count Aniso Slight No No No No Apr 05 informa informa informa informa 2013 tion in tion in tion in tion in 7:35 PM source source source source data data data data Poik Slight No No No No Apr 05 informa informa informa informa 2013 tion in tion in tion in tion in 7:35 PM source source source source data data data data Crenate Occasio No No No No Apr 05 d Cell nal informa informa informa informa 2013 tion in tion in tion in tion in 7:35 PM source source source source data data data data CBC Observa Value Referen Units Interpr Notes Date ti ce etation Range LEUKOCY 8.7 4.0 - x10(3)/ No No Apr 05 PAOLA 11.0 mcL informa informa 2014 tion in tion in 7:35 PM source source data data Erythro 4.99 3.80 - x10(6)/ No No Apr 05 cytes 5.10 mcL informa informa 2014 [#/volu tion in tion in 7:35 PM me] in source source Blood data data by Automat ed count Hemoglo 14.5 12.0 - gm/dL No Apr 05 bin 15.6 informa informa 2014 [Mass/v tion in tion in 7:35 PM olume] source source in data data Blood Hematoc 42.9 35.7 - % No No Apr 05 rit 45.9 informa informa 2014 [Volume tion in tion in 7:35 PM source source Fractio data data n] of Blood by Automat ed count Erythro 85.8 82.5 - fL No No Apr 05 cyte 99.8 informa informa 2014 mean tion in tion in 7:35 PM corpusc source source ular data data volume [Entiti c volume] by Automat ed count Erythro 29.0 27.0 - pg No No Apr 05 cyte 34.3 informa informa 2014 mean tion in tion in 7:35 PM corpusc source source ular data data hemoglo bin [Entiti c mass] by Automat ed count Erythro 33.8 32.1 - gm/dL No No Apr 05 cyte 35.3 informa informa 2014 mean tion in tion in 7:35 PM corpusc source source ular data data hemoglo bin concent ration [Mass/v olume] by Automat ed count Erythro 13.8 11.5 - % No No Apr 05 cyte 15.0 informa informa 2014 distrib tion in tion in 7:35 PM ution source source width data data [Ratio] by Automat ed count Platele 299 144 - x10(3)/ No No Apr 05 ts 423 mcL informa informa 2014 [#/volu tion in tion in 7:35 PM me] in source source Blood data data by Automat ed count MPV 10.7 6.8 - fL No No Apr 05 10.8 informa informa 2014 tion in tion in 7:35 PM source source data data Auto Diff Observa Value Referen Units Interpr Notes Date tion ce etation Range Neutrop 62.6 No % No No Mar 10 hils informa informa informa 2013 [#/volu tion in tion in tion in 7:35 PM me] in source source source Blood data data data by Automat ed count Lymphoc 27.6 No % No No Mar 10 ytes informa informa informa 2013 [#/volu tion in tion in tion in 7:35 PM me] in source source source Blood data data data by Automat ed count Monocyt 5.5 No % No No Apr 05 es informa informa informa 2013 [#/volu tion in tion in tion in 7:35 PM me] in source source source Blood data data data by Automat ed count Eos 3.8 No % No No Mar 10 Percent informa informa informa 2014 tion in tion in tion in 7:35 PM source source source data data data Baso 0.5 No % No No Mar 10 Percent informa informa informa 2014 tion in tion in tion in 7:35 PM source source source data data data Neut# 5.4 1.8 - x10(3)/ No No Mar 10 7.7 mcL informa informa 2014 tion in tion in 7:35 PM source source data data Lymph# 2.4 0.6 - x10(3)/ No No Mar 10 4.8 mcL informa informa 2014 tion in tion in 7:35 PM source source data data [place]# 0.5 0.0 - x10(3)/ No No Mar 10 1.3 mcL informa informa 2014 tion in tion in 7:35 PM source source data data Eos# 0.3 0.0 - x10(3)/ No No Mar 10 0.5 mcL informa informa 2014 tion in tion in 7:35 PM source source data data Baso# 0.0 0.0 - x10(3)/ No No Mar 10 0.2 mcL informa informa 2014 tion in tion in 7:35 PM source source data data Lipid Scr Observa Value Referen Units Interpr Notes Date tion ce etation Range Cholest 212 <=200 mg/dL High < 200 Apr 05 esa 2014 [Percen 6:24 PM tile] Desirab le\.br\ 200 - 239 Borderl ine High\.b r\>= 240 High TRIGLYC 121 <=150 mg/dL No < 150 Apr 05 ERIDES. informa 2013 TOTAL tion in Normal\ 6:24 PM source .br\150 data - 199 Borderl ine High\.b r\200 - 499 High\.b r\ >= 500 Very High CHOLEST 52 >=40 mg/dL No > 60 Apr 05 EROLS.I informa 2013 N HDL tion in Optimal 6:23 PM source \.br\40 data - 60 Accepta ble\.br \ < 40 Low LDL 136 <=100 mg/dL High < 100 Apr 05 Calcula 2013 ariella 6:24 PM Optimal \.br\10 0 - 129 Near or above optimal \.br\13 0 - 159 Borderl ine High\.b r\160 - 189 High\.b r\ >= 190 Very High TSH Observa Value Referen Units Interpr Notes Date tion ce etation Range Thyrotr 6.900 0.270 - mcIU/mL High No Apr 05 opin 4.200 informa 2013 [Units/ tion in 6:24 PM volume] source in data Serum or Plasma XR FOOT LEFT AP LATERAL AND OBLIQUE Observa Value Referen Units Interpr Notes Date tion ce etation Range TEXT THREE No No No No Mar 09 DIAGNOS VIEW informa informa informa informa 2012 IS LEFT tion in tion in tion in tion in 10:02 BATTERY FOOT - source source source source PM data data data data 013:\.b r\\.br\ HISTORY : Nontrau matic lateral pain.\. br\\.br \COMPAR MALLORY: Compari son with 03/10/20 12 exam.\. br\\.br \No focal displac ed or healing fractur e identif ied. No signifi cant\.b r\degen erative change or soft\.b r\tissu e injury. \.br\\. br\IMPR ESSION: Stable left foot exam. No evidenc e of fractur e. XR FOOT LEFT AP LATERAL AND OBLIQUE Observa Value Referen Units Interpr Notes Date tion ce etation Range TEXT Three-v No No No No Mar 10 DIAGNOS iew informa informa informa informa 2011 IS left tion in tion in tion in tion in 7:50 PM BATTERY foot source source source source [place] 14, data data data data 2011 07:51:0 2 PMINDIC ATION: Trauma, pain in fourth toe.The re is a posteri or calcane al spur. No fractur e or acute bony abnorma lityis identif ied.IMP RESSION : Negativ e exam.
--- OUTSIDE RECORDS SUMMARY | 2017-08-29 09:37 | External Medical Summary Rpt ---
Author Author GAELKEKE Terry, [employer] Address Unknown Phone Unavailable [...] in 5:07 PM source source data data [place]# 0.6 0.0 - x10(3)/ No No Nov [...] in 9:33 AM source source data data [place]# 0.8 0.0 - x10(3)/ No May 18 1.3 mcL informa informa 2016 tion in tion in 9:33 AM source source data data Eos# 0.5 0.0 - x10(3)/ No No May 18 0.5 [facility] informa informa 2016 tion in tion in 9:33 AM source source data data Baso# 0.1 0.0 - x10(3)/ No No May 18 0.2 [facility] informa informa 2016 tion in tion in 9:33 AM source source data data CBC Observa Value Referen Units Interpr Notes Date tion ce etation Range LEUKOCY 10.9 4.0 - x10(3)/ No No May 18 PAOLA 11.0 [facility] informa informa 2016 tion in tion in 9:33 AM source source data data Erythro 4.35 3.80 - x10(6)/ No May 18 cytes 5.10 [facility] informa informa 2016 [#/volu tion in [...] in 7:35 PM source source data data [place]# 0.5 0.0 - x10(3)/ No No Mar [...]
--- NOTE | 2017-08-29 09:54 | [facility]gent Treatment Center Report ---
History of Present Issue Date/Time Seen by Provider 08/29/17 0923 Visit Reason Pt arrived:Walked Presenting Problem:PT C/O OF SORE THROAT AND FEVERS SINCE WEDNESDAY Location if Accident: Onset of symptoms date/time:/ or onset unknown for:MEDICAL HX UNKNOWN Have you (or family members/close friends) recently traveled outside the [place]? N If Yes, where/when: Have you had exposure to infectious disease within the past month? TB? Other? Specify: Patient state that has been having sore throat and fever on and off since Wed, State that she has taken Motrin and Tylenol to help control the fevers State that her daughter has been sick with the same and she was worried that they may have strep throat or flu ALLERGIES Coded Allergies: No Known Allergies (04/27/16) Home Medications Active Scripts OXYCODONE HCL/ACETAMINOPHEN (Percocet 7.5-325 MG Tablet) 1 TAB PO Q6HP PRN MODERATE TO SEVERE PAIN #30 TAB Prov: 05/11/16 SULFAMETHOXAZOLE W/TRIMETHOPRI (Bactrim Ds Tab) 1 TAB PO BID #20 TAB Prov: 05/11/16 History Medical History General CAD? No Angina: No AR: No Hypertension? No Hyperlipidemia? No CHF? No DVT? No PE? No COPD? No Asthma? No Anemia? No GERD? No Gastric ulcers? No GI Bleed? No Hernia? No Thyroid Problems? No Hypothyroidism? No CVA? No Seizures? No Diabetes? No UTI? Yes Stones? No BPH? No GB Disease: Yes Nephritic Syndrome? No Asplenia? No Hepatitis? No Sickle Cell Disease? No Arthritis? No Migraines? No Cataracts? No Glaucoma? No MRSA? No HIV? No TB? No Anxiety? No Depression? No Cancer? No More? 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 Physical Exam Vital Signs Vital Signs Date Time Temp Pulse Resp B/P Pulse O2 O2 Flow FiO2 Ox Delivery Rate 08/29 1031 98.1 93 20 106/67 98 08/29 0942 98.1 93 20 106/67 98 General Appearance Female dressed appropriatly for weather appears ill, cheeks flush sitting in exam chair Ear, Nose, Throat Throat red, irritated drainage noted Respiratory Status Yes: trachea midline, chest symmetrical, non tender chest. No: respiratory distress. Lung Sounds bilateral: normal breath sounds, lungs clear. Cardiovascular normal exam, regular rate/rhythm, no peripheral edema Neurologic alert, normal exam, oriented x 3 Medical Decision Making LABS/Meds/Orders Pt receiving controlled substance in ED? No Results/Orders Laboratory Tests 08/29/17 1005: Influenza Type A Ag NOT DETECTED, Influenza Type B Ag NOT DETECTED 08/29/17 0944: Group A Strep Screen DETECTED Orders Procedure Date/time Status [facility] FLU A,B 08/29 1005 Complete UTC STREP SCREEN 08/29 0944 Complete Progress [facility] Progress Notes Comment Patient state that she is no allergic to Penicillin and been able to take Penicillin and has taken it many times in the past Patient educated on what to watch for in case of Penicillin allergy Departure Departure Time of Disposition 1008 Disposition DC Home or Self Care(routine) Clinical Impression Primary Impression: Strep throat Condition STABLE Patient Instructions DI for Strep Throat, Strep Throat Additional Instructions * Monitor Temp. Tylenol and/or Ibuprofen as needed. ER if fever is no less than 101 despite alternating Tylenol and Ibuprofen * Encourage fluids, water, Gatorade, powerade, pedialyte if infant/toddler/or child * Warm salt water gargles for throat irritation *Warm fluids *Sore throat lozenges *Sleep elevated *humidifier or vaporizer Lots of rest Increase fluids, water, Gatorade, powerade Follow up IMMEDIATELY for new or worsening of symptoms OR no noticeable improvement over the next 48-72 hours. 911 immediately for any life threatening symptoms such as chest pain or difficulty breathing Discharge Counseling Counseled pt/family regarding diagnosis, test results, medications/RX, home care, follow up needs Prescriptions Current Visit Scripts Penicillin V Potassium 500 MG PO BID #20 TAB at 2141 care, follow up needs
--- NOTE | 2017-08-29 09:54 | Urgent Treatment Center Report ---
History of Present Issue Date/Time Seen by Provider 08/29/17 0950 Visit Reason Pt arrived:Walked Presenting Problem:PT C/O OF SORE THROAT AND FEVERS SINCE WEDNESDAY Location if Accident: Onset of symptoms date/time:/ or onset unknown for:MEDICAL HX UNKNOWN Have you (or family members/close friends) recently traveled outside the [place]? N If Yes, where/when: Have you had exposure to infectious disease within the past month? TB? Other? Specify: Patient state that has been having sore throat and fever on and off since Wed, State that she has taken Motrin and Tylenol to help control the fevers State that her daughter has been sick with the same and she was worried that they may have strep throat or flu ALLERGIES Coded Allergies: No Known Allergies (04/27/16) Home Medications Active Scripts OXYCODONE HCL/ACETAMINOPHEN (Percocet 7.5-325 MG Tablet) 1 TAB PO Q6HP PRN MODERATE TO SEVERE PAIN #30 TAB Prov: 05/11/16 SULFAMETHOXAZOLE W/TRIMETHOPRI (Bactrim Ds Tab) 1 TAB PO BID #20 TAB Prov: 05/11/16 History Medical History General CAD? No Angina: No NC: No Hypertension? No Hyperlipidemia? No CHF? No DVT? No PE? No COPD? No Asthma? No Anemia? No GERD? No Gastric ulcers? No GI Bleed? No Hernia? No Thyroid Problems? No Hypothyroidism? No CVA? No Seizures? No Diabetes? No UTI? Yes Stones? No BPH? No GB Disease: Yes Nephritic Syndrome? No Asplenia? No Hepatitis? No Sickle Cell Disease? No Arthritis? No Migraines? No Cataracts? No Glaucoma? No MRSA? No HIV? No TB? No Anxiety? No Depression? No Cancer? No More? 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 Physical Exam Vital Signs Vital Signs Date Time Temp Pulse Resp B/P Pulse O2 O2 Flow FiO2 Ox Delivery Rate 08/29 1031 98.1 93 20 106/67 98 08/29 0942 98.1 93 20 106/67 98 General Appearance Female dressed appropriatly for weather appears ill, cheeks flush sitting in exam chair Ear, Nose, Throat Throat red, irritated drainage noted Respiratory Status Yes: trachea midline, chest symmetrical, non tender chest. No: respiratory distress. Lung Sounds bilateral: normal breath sounds, lungs clear. Cardiovascular normal exam, regular rate/rhythm, no peripheral edema Neurologic alert, normal exam, oriented x 3 Medical Decision Making LABS/Meds/Orders Pt receiving controlled substance in ED? No Results/Orders Laboratory Tests 08/29/17 1005: Influenza Type A Ag NOT DETECTED, Influenza Type B Ag NOT DETECTED 08/29/17 0944: Group A Strep Screen DETECTED Orders Procedure Date/time Status [facility] FLU A,B 08/29 1005 Complete UTC STREP SCREEN 08/29 0944 Complete Progress [facility] Progress Notes Comment Patient state that she is no allergic to Penicillin and been able to take Penicillin and has taken it many times in the past Patient educated on what to watch for in case of Penicillin allergy Departure Departure Time of Disposition 1008 Disposition DC Home or Self Care(routine) Clinical Impression Primary Impression: Strep throat Condition STABLE Patient Instructions DI for Strep Throat, Strep Throat Additional Instructions * Monitor Temp. Tylenol and/or Ibuprofen as needed. ER if fever is no less than 101 despite alternating Tylenol and Ibuprofen * Encourage fluids, water, Gatorade, powerade, pedialyte if infant/toddler/or child * Warm salt water gargles for throat irritation *Warm fluids *Sore throat lozenges *Sleep elevated *humidifier or vaporizer Lots of rest Increase fluids, water, Gatorade, powerade Follow up IMMEDIATELY for new or worsening of symptoms OR no noticeable improvement over the next 48-72 hours. 911 immediately for any life threatening symptoms such as chest pain or difficulty breathing Discharge Counseling Counseled pt/family regarding diagnosis, test results, medications/RX, home care, follow up needs Prescriptions Current Visit Scripts Penicillin V Potassium 500 MG PO BID #20 TAB at 2141 care, follow up needs
[2017-08-29 10:31] VITALS: BP 106/67
[2017-09-02] MEDS ORDERED: PENICILLIN-VK500 MG PO (21:41)
== END 2017-08-29 10:31 | disposition home or self-care (01) ==
LOC: UTC 09:30
DX: J02.0 Streptococcal pharyngitis (principal); Z87.891 Personal history of nicotine dependence